=== PATIENT | female | born 1965 | race Caucasian/White ===

== ENCOUNTER → 2016-11-02 | Day surgery (SDC) | payer OTHER ==
[2016-10-16 11:01] VITALS: BMI 33.0
[~2016-11-02] VITALS: Ht 167.6 cm; Wt 93.2 kg
[~2016-11-02] MED LIST: ATOR10TA82 PO; CHLO1TAB47 PO; HYDR-5688 PO; LIDOCAINE HCL 2% 2 ML VIAL (20MG/ML) ONE; MIDAZOLAM HCL 1 MG/ML 2ML VIAL ONE; ONDANSETRON INJ 2 MG/ML 2 ML VIAL ONE; PROPOFOL IV EMULSION 10 MG/ML 20 ML VIAL IV ONE; RANITAB PO; SODIUM CHLORIDE 0.9% 500ML 500 ML IV ONE; VENL37.593 PO
[2016-11-02 10:40] VITALS: Ht 167.6 cm; Wt 93.2 kg
--- NOTE | 2016-11-02 11:10 | Endo History and Physical ---
History & Physical Date of Service: Nov 02, 2016. Chief Complaint: SCREENING Referring Physician: DR Dinora STORY History of Present Illness 51 yo CF who presents for screening colonoscopy. Past Surgical History Hx Cardiac Surgery: No Hx Internal Defibrillator: No Hx Pacemaker: No Hx Abdominal Surgery: Yes (ALEE, APPY, X3, BELKIS BSO) Hx of Implantable Prosthesis: No Hx Post-Op Nausea and Vomiting: No Hx Cancer Surgery: Yes (BCC REMOVALS) Hx Thoracic Surgery: No Hx Orthopedic: Yes (RT RCR, RT ELBOW BONE SPUR REMOVAL) Hx Urinary Tract Surgery: Yes (LITHOTRIPSY) Family History Colon CA Social History Smoking Status: Current Every Day Smoker Hx Substance Use: No Hx Alcohol Use: Yes (SOCIAL) Allergies Coded Allergies: No Known Allergies (Unverified , 11/02/16) Current Medications Reported Home Medications Medications Dose Route/Sig Max Daily Dose Days Date Category Dose Instructions Heartburn Relief (Ranitidine Hcl) 75 Mg Tab 1 Tab PO DAILY PRN 10/16/16 Reported Lipitor (Atorvastatin Calcium) 10 Mg Tab 10 Mg PO HS 10/16/16 Reported [place] Plus Cold (Chlorpheniramine-Phenylephrine) 1 Tab Tab 1 Tab PO UD PRN 10/16/16 Reported [place] 5MG/325MG (Acetaminophen/Hydrocodone Bitart) Tab 1 Tablet PO Q6H PRN 08/31/15 Reported PRN PAIN Venlafaxine Extended Rel (Venlafaxine Hcl) 37.5 Mg Cap 37.5 Mg PO HS 02/07/14 Reported Vital Signs Weight (Kilograms): 93.18 Height (Feet): 5 Height (Inches): 6 Date Time Temp Pulse Resp B/P Pulse Ox O2 Delivery O2 Flow Rate FiO2 11/02/16 10:46 36.7 75 18 135/75 97 Room Air Physical Exam General Appearance: WD/WN, no apparent distress Respiratory/Chest: Auscultation: breath sounds normal Cardiovascular: Heart Auscultation: RRR Abdomen: Bowel Sounds: normal Inspection & Palpation: soft, non-distended, no tenderness, guarding & rebound Assessment and Plan Assessment: 51 yo CF who presents for screening colonoscopy. Plan: Proceed with colonoscopy.
--- NOTE | 2016-11-02 11:32 | GI REPORT ---
Procedure Date: 11/02/2016 11:12 AM Procedure: Colonoscopy Indications: Screening for colorectal malignant neoplasm Medicines: Monitored Anesthesia Care Complications: No immediate complications. Estimated Blood Loss: Estimated blood loss: none. Procedure: Pre-Anesthesia Assessment: - Prior to the procedure, a History and Physical was performed, and patient medications and allergies were reviewed. The patient's tolerance of previous anesthesia was also reviewed. The risks and benefits of the procedure and the sedation options and risks were discussed with the patient. All questions were answered, and informed consent was obtained. Prior Anticoagulants: The patient has taken no previous anticoagulant or antiplatelet agents. ASA Grade Assessment: II - A patient with mild systemic disease. After reviewing the risks and benefits, the patient was deemed in satisfactory condition to undergo the procedure. After I obtained informed consent, the scope was passed under direct vision. Throughout the procedure, the patient's blood pressure, pulse, and oxygen saturations were monitored continuously. The Scope was introduced through the anus and advanced to the terminal ileum. The colonoscopy was performed without difficulty. The patient tolerated the procedure well. The quality of the bowel preparation was good. The terminal ileum, ileocecal valve, appendiceal orifice, and rectum were photographed. Findings: A 4 mm polyp was found in the transverse colon. The polyp was sessile. The polyp was removed with a cold snare. Resection and retrieval were complete. Non-bleeding internal hemorrhoids were found during retroflexion. The hemorrhoids were small. Impression: - One 4 mm polyp in the transverse colon, removed with a cold snare. Resected and retrieved. - Non-bleeding internal hemorrhoids. Recommendation: - Resume previous diet. - Continue present medications. - Repeat colonoscopy for surveillance based on pathology results. - Return to primary care physician as previously scheduled. Toribio Giles DO 11/02/2016 11:32:20 AM This report has been signed electronically. Note Initiated On: 11/02/2016 11:12 AM I attest to the content of the Intraoperative Record and orders documented therein, exceptions below
--- NOTE | 2016-11-02 11:33 | Discharge Instructions ---
Endoscopy Patient Instructions Date / Procedure(s) Performed Nov 02, 2016. Colonoscopy Allergy Information Coded Allergies: No Known Allergies (Unverified , 11/02/16) Discharge Date / Findings Nov 02, 2016. Colon polyp Internal hemorrhoids Medication Instructions OK to resume all medications today as prescribed. Reported Home Medications Medications Dose Route/Sig Max Daily Dose Days Date Category Dose Instructions Heartburn Relief (Ranitidine Hcl) 75 Mg Tab 1 Tab PO DAILY PRN 10/16/16 Reported Lipitor (Atorvastatin Calcium) 10 Mg Tab 10 Mg PO HS 10/16/16 Reported [place] Plus Cold (Chlorpheniramine-Phenylephrine) 1 Tab Tab 1 Tab PO UD PRN 10/16/16 Reported [place] 5MG/325MG (Acetaminophen/Hydrocodone Bitart) Tab 1 Tablet PO Q6H PRN 08/31/15 Reported PRN PAIN Venlafaxine Extended Rel (Venlafaxine Hcl) 37.5 Mg Cap 37.5 Mg PO HS 02/07/14 Reported Provider Instructions Activity Restrictions - No exercising or heavy lifting for 24 hours. - Do not drink alcohol the day of the procedure. - Do not drive a car or operate machinery until the day after the procedure. - Do not make any important decisions or sign important papers in 24 hours after the procedure. Following Day: - Return to full activity which may include returning to work/school. Diet Start your diet with liquids and light foods (jello, soup, juice, toast). Then eat your usual diet if not nauseated. Treatment For Common After Affects For mild abdominal pain, bloating, or excessive gas: - Rest - Eat lightly - Lie on right side Follow-Up Information Follow-up with DR Dinora STORY as scheduled Anesthesia Information What You Should Know You have had a procedure that required some medicine to reduce anxiety and discomfort. This treatment is called moderate sedation. After receiving the treatment, you may be sleepy, but you will be able to breathe on your own. The effects of the treatment may last for several hours. Follow these instructions along with Activity/Diet recommendations noted above: * Do NOT do anything where dizziness or clumsiness would be dangerous. * Rest quietly at home today, then you can be up and about tomorrow. * Have a responsible person stay with you the rest of today. * You may have had an I.V. today. If so, you may take the dressing off later today. Recommendations Call your doctor if: * Trouble breathing * Continuous vomiting for more than 24 hours * Temperature above 101 degrees * Severe abdominal pain or bloating * Pain not relieved by pain medicine ordered * There is increased drainage or redness from any incision * A large amount of rectal bleeding greater than 2-3 tablespoons. (If you had a polyp/s removed or have hemorrhoids, a small amount of blood - from the rectum is to be expected.) * You have any unanswered questions or concerns. IN THE EVENT OF A SERIOUS EMERGENCY, GO TO THE NEAREST EMERGENCY ROOM Your discharge instructions were prepared by provider Toribio Giles. Patient Instructions Signature Page Dalila Atkins Patient (or Guardian) Signature/Date: I have read and understand the instructions given to me by my caregivers. Caregiver/RN/Doctor Signature/Date: The above-named patient and/or guardian has received patient instructions on this date. + Original Patient Signature Page (only) stays with chart. Please make copy for patient.
[2016-11-02 12:19] VITALS: BP 118/79; PULSE 81; O2SAT 96
--- NOTE | 2016-11-02 13:32 | Anesthesiology Progress Note ---
Anesthesia Post Op Note Date & Time Nov 02, 2016 at 13:32 Vital Signs Pain Intensity: 0 Vital Signs Past 12 Hours Date Time Temp Pulse Resp B/P Pulse Ox O2 Delivery O2 Flow Rate FiO2 11/02/16 12:19 81 20 118/79 96 Room Air 11/02/16 11:58 78 20 124/82 97 Room Air 11/02/16 11:42 91 18 115/81 96 Room Air 11/02/16 10:46 36.7 75 18 135/75 97 Room Air Notes Mental Status: alert / awake / arousable, participated in evaluation Pt Amnestic to Procedure: Yes Nausea / Vomiting: adequately controlled Pain: adequately controlled Airway Patency, RR, SpO2: stable & adequate BP & HR: stable & adequate Hydration State: stable & adequate Anesthetic Complications: no major complications apparent
== END | disposition home or self-care (01) ==
LOC: C.GI 10:29
PROVIDERS: ATTEND Internal Medicine
DX: Z12.11 Encounter for screening for malignant neoplasm of colon (principal); D12.3 Benign neoplasm of transverse colon; K64.8 Other hemorrhoids; E66.9 Obesity, unspecified; F17.200 Nicotine dependence, unspecified, uncomplicated; K21.9 Gastro-esophageal reflux disease without esophagitis; M19.90 Unspecified osteoarthritis, unspecified site; Z90.89 Acquired absence of other organs; Z90.49 Acquired absence of other specified parts of digestive tract; Z79.899 Other long term (current) drug therapy; Z68.33 Body mass index [BMI] 33.0-33.9, adult; Z80.0 Family history of malignant neoplasm of digestive organs

== ENCOUNTER → 2017-03-15 | Outpatient (CLI) | payer OTHER ==
[~2017-03-15] MED LIST changes: -ATOR10TA82 PO; +ATOR10TA88 PO; -LIDOCAINE HCL 2% 2 ML VIAL (20MG/ML) ONE; -MIDAZOLAM HCL 1 MG/ML 2ML VIAL ONE; -ONDANSETRON INJ 2 MG/ML 2 ML VIAL ONE; -PROPOFOL IV EMULSION 10 MG/ML 20 ML VIAL IV ONE; -SODIUM CHLORIDE 0.9% 500ML 500 ML IV ONE
[2017-03-15 12:57] LABS: CHOLESTEROL/HDL RATIO 3.6
== END | disposition home or self-care (01) ==
LOC: C.LAB 10:16
PROVIDERS: ATTEND Physician Assistant
DX: Z00.00 Encounter for general adult medical examination without abnormal findings (principal)

== ENCOUNTER 2017-11-21 14:33 | Emergency (ER) | payer OTHER ==
[~2017-11-21] VITALS: Ht 167.6 cm; Wt 95.5 kg
[~2017-11-21 14:33] MED LIST changes: +ATOR10TA82 PO; -ATOR10TA88 PO; -CHLO1TAB47 PO; +CHLO1TAB50 PO
[2017-11-21 14:36] VITALS: TEMP 36.8; Ht 167.6 cm; Wt 95.5 kg
[2017-11-21] MEDS ORDERED: OXYCODONE/ACETAMINOPHEN 5-325 TAB PO ONE (15:15)
[2017-11-21] MEDS ORDERED: HYDR-4313 PO (15:21)
[2017-11-21] MEDS ORDERED: PRED20TA2 PO (15:21)
[2017-11-21] MEDS ORDERED: FLX10 PO (15:21)
[2017-11-21] MEDS ORDERED: VENL75CA73 PO (15:22)
--- NOTE | 2017-11-21 15:54 | DIAGNOSTIC IMAGING REPORT ---
CERVICAL SPINE 5 VIEWS CLINICAL HISTORY: Neck pain. Right upper extremity radiculopathy. FINDINGS: AP, lateral, bilateral oblique, and odontoid views of the cervical spine are obtained. No prior studies are available for comparison at the time of dictation. The skeletal structures are osteopenic. There is no radiographic evidence of fracture or subluxation. There is straightening of the cervical lordosis. Vertebral body height and alignment are maintained. The spinolaminar line is preserved. The odontoid process and lateral masses appear intact, as seen on the open-mouth view. The atlantodental articulation appears maintained. Anterior osteophytes are seen at C5-C6. There is moderate disc space narrowing at C5-C6, and a posterior disc osteophyte complex at this level may contribute to mild acquired compromise of the central canal. Uncovertebral and facet arthropathy likely contribute to mild bilateral neural foraminal stenosis from C4-C5 through C6-C7. The prevertebral soft tissues are normal as imaged. The visualized upper lobe lung parenchyma appears clear. IMPRESSION: 1. There is no radiographic evidence of fracture or subluxation involving the cervical spine. 2. Osteopenia and spondylotic change as above, greatest at C5-C6. Dictated: 11/21/2017 3:48 PM Transcribed: 11/21/2017 3:54 PM [email or web address] Electronically signed by: Kwan Wellington M.D. 11/21/2017 3:57 PM Dictated Date/Time: 11/21/2017 3:48 PM
[2017-11-21] MEDS ORDERED: OXYC-57 PO (16:11)
--- NOTE | 2017-11-21 16:28 | EMERGENCY ROOM VISIT NOTE ---
History First contact with patient: 14:55 Chief Complaint: ARM PAIN Stated Complaint: NECK PAIN, SHOULDER PAIN, NUMBNESS IN FINGERS, RT History of Present Illness The patient is a 52 year old white female who presents to the Emergency Room with complaints of right arm and shoulder pain has been present for 9 days. Patient fell down some steps 2 weeks ago and landed on her low back. She had low back pain at that time. Her low back pain has resolved. The right arm pain persists. It was not present after the initial fall. She did see her PCP earlier this week and was prescribed a tapering course of prednisone and cyclobenzaprine. She states they are not helping. She has Vicodin for her low back. She states that is not touching the pain either. She notes tingling in her index and long fingers. She denies any loss of motion or loss of strength. She is unable to extend her neck secondary to pain. She states her arm pain is relieved with hanging her head forward or raising her right arm over her head. No symptoms on the left arm. Radiating pain increases with looking to the right. It is less with looking to the left. Right hand dominant. Her son accompanies her today. Review of Systems REVIEW OF SYSTEM: HEENT: No dizziness, visual problems, hearing loss, or tinnitus. There is no difficulty swallowing and no oral lesions are present. PULMONARY: No cough, shortness of breath, sputum production or hemoptysis. CARDIOVASCULAR: No chest pain, palpitations, shortness of breath or peripheral edema. GASTROINTESTINAL: No diarrhea, constipation, nausea, vomiting, or abdominal pain. GENITOURINARY: No dysuria, frequency, urgency or nocturia. NEUROLOGIC: No weakness, muscle tenderness, epilepsy or history of neurological problems. MUSCULOSKELETAL: No history of joint tenderness/swelling. No history of arthritis or arthralgias. SKIN: No rashes or lesions. ENDOCRINE: No history of diabetes, thyroid disorders, or abnormal hair growth. Past Medical/Surgical History Medical Problems: (1) No Known Active Medical Problems Surgical Problems: (1) Hx of appendectomy (2) Hx of cholecystectomy (3) Hx of hysterectomy 3, right elbow spur excision, right shoulder rotator cuff repair Family History Significant for diabetes, heart disease, hypertension, cancer, and kidney stones. Parents are . Social History Smoking Status: Current Every Day Smoker Smokeless Tobacco Use: No Alcohol Use: occasionally Drug Use: none Marital Status: Housing Status: lives with family Occupation Status: employed Current/Historical Medications Scheduled Prednisone (Prednisone Tab), 1 DOSE PO DAILY Venlafaxine Hcl (Venlafaxine Extended Rel), 75 MG PO DAILY Scheduled PRN Acetaminophen/Hydrocodone (Hydrocodone/Acetaminophen 5-325 mg), 1 TAB PO Q6 PRN for Pain Cyclobenzaprine HCl (Cyclobenzaprine HCl), 10 MG PO BID PRN for SPASMS Oxycodone/Acetaminophen 5MG/325MG (Percocet 5MG/325MG), 1-2 TABLETS PO Q6H PRN for Pain Physical Exam Vital Signs Date Time Temp Pulse Resp B/P (MAP) Pulse Ox O2 Delivery O2 Flow Rate FiO2 11/21/17 14:36 36.8 87 18 129/88 96 Room Air Physical Exam General: Well-developed, well-nourished, middle-aged white female, in obvious discomfort. No acute distress. Sitting on the bed. Alert and oriented. Skin: Warm and dry with good turgor. No rashes or lesions. No ecchymosis or erythema. The patient is not diaphoretic. No abrasions. Skin tags are present. Musculoskeletal: Patient denies any discomfort with palpation over her cervical spine. No pain with palpation over the left side paraspinal musculature or left shoulder. No palpable spasm. She has discomfort with palpation over the right trapezius and right rhomboid musculature. No pain with palpation over the right-sided rotator cuff, deltoid, bicep, or tricep. Full left cervical rotation, right cervical rotation limited by approximately 20. Full forward flexion. Neck extension limited to just beyond neutral secondary to right- sided pain. Full range of motion of the right shoulder, elbow, and wrist. Strength is 5/5 for resisted flexion and extension of the digits, wrist, and elbow. Normal strength for resisted finger extension as well as abduction, pinch roller skater, and opposition. No increase in pain with rotator cuff testing. Neurologic: Gross sensation is intact across the right arm by soft touch. Decreased subjective sensation across the index and long fingers, consistent with C7. Peripheral pulses are 2+. Medical Decision & Procedures ER Provider Diagnostic Interpretation: Radiographic imaging obtained today of the cervical spine was reviewed by me and read by radiology. No evidence of fracture or subluxation.. She does have spondylotic change greatest at C5-C6. Neural foramen narrowing is noted on the right at multiple levels. Medications Administered Medications (Trade) Dose Ordered Sig/Petar Route Start Time Stop Time Status Last Admin Dose Admin Oxycodone/ Acetaminophen (Percocet 5-325mg Tab) 2 tab ONE ONCE PO 11/21/17 15:15 11/21/17 15:16 DC 11/21/17 15:31 2 TAB Percocet 5 mg, 2 tablets p.o. ED Course Patient was educated regarding today's findings. Conservative care measures were discussed. Imaging of the cervical spine was obtained. She has tried Flexeril, prednisone, and Vicodin without improvement. She was given 2 tablets of Percocet while in the ED. Additional prescription was provided. Continue taking this every 6 hours as needed for pain control. Follow-up with her PCP tomorrow for discussion about a nerve conduction study and cervical spine MRI to evaluate for nerve root impingement. I do suggest gentle stretching of her neck. Ice or moist heat applied intermittently may improve her discomfort. Return to the ED for any acute worsening of symptoms. Medical Decision Possibility of spinal stenosis, disc bulge, nerve root impingement, brachial plexus injury, muscle spasm, and traction injury were considered. Medication Reconcilliation Current Medication List: was personally reviewed by me Blood Pressure Screening Patient's blood pressure: Normal blood pressure Impression Primary Impression: Radiculopathy of cervical spine Additional Impression: Arm pain, right Departure Information Prescriptions Oxycodone/Acetaminophen 5MG/325MG (PERCOCET 5MG/325MG) Tab 1-2 TABLETS PO Q6H Y for Pain, #15 TAB PAIN Prov: aCrlitos Bishop,P.A. 11/21/17 Referrals Mae Heck D.O. (PCP) Patient Instructions [facility] Problem Qualifiers
[2017-11-21 16:41] VITALS: BP 175/78; PULSE 90; O2SAT 96
== END 2017-11-21 16:42 | disposition home or self-care (01) ==
LOC: C.EDB 14:36 → C.EDD 16:42
DX: M54.12 Radiculopathy, cervical region (principal); M79.601 Pain in right arm; W10.9XXA Fall (on) (from) unspecified stairs and steps, initial encounter; F17.200 Nicotine dependence, unspecified, uncomplicated; Z90.49 Acquired absence of other specified parts of digestive tract; Z90.710 Acquired absence of both cervix and uterus; Z90.89 Acquired absence of other organs; Z98.891 History of uterine scar from previous surgery; Z98.890 Other specified postprocedural states; Z83.3 Family history of diabetes mellitus; Z82.49 Family history of ischemic heart disease and other diseases of the circulatory system; Z84.1 Family history of disorders of kidney and ureter

== ENCOUNTER → 2018-02-10 | Outpatient (CLI) | payer OTHER ==
[~2018-02-10] MED LIST changes: -ATOR10TA82 PO; -CHLO1TAB50 PO; +FLX10 PO; +GADAVIST IV PRN; +HYDR-4313 PO; -HYDR-5688 PO; +OXYC-57 PO; +PRED20TA2 PO; -RANITAB PO; -VENL37.593 PO; +VENL75CA73 PO
--- NOTE | 2018-02-10 10:01 | DIAGNOSTIC IMAGING REPORT ---
CERVICAL SPINE MRI WITH AND WITHOUT CONTRAST HISTORY: WITH CONTRAST ONLY .... NECK PAIN/ R ARM NUMBESS TECHNIQUE: Multiplanar multisequence MRI of the cervical spine was performed both before and after the use of intravenous contrast. COMPARISON STUDY: Cervical spine 11/21/2017. FINDINGS: No fracture or subluxation within the cervical spine. Moderate disc space narrowing at C5-C6. Mild disc space narrowing at C6-C7. The visualized posterior fossa is unremarkable. Normal signal intensity within the cervical spinal cord. No abnormal enhancement. Prevertebral soft tissues and the C1-C2 interval are intact. Mild endplate degenerative changes at C5-C6. C2-C3: No significant central canal or neural foraminal narrowing. C3-C4: Small broad-based posterior disc bulge without significant central canal narrowing. There is mild bilateral neural foraminal narrowing. C4-C5: No significant central canal or neural foraminal narrowing. C5-C6: Broad-based posterior disc bulge which abuts and slightly deforms the anterior cord resulting in mild to moderate mild central canal and severe bilateral neural foraminal narrowing. C6-C7: Broad-based posterior disc bulge with a small left paracentral focal disc protrusion. This abuts but does not significantly deform the anterior cord. There is associated severe right and mild left neural foraminal narrowing. C7-T1: No significant central canal or neural foraminal narrowing. IMPRESSION: 1. Broad-based posterior disc bulge at C5-C6 which abuts and slightly deforms the anterior cord resulting in mild to moderate mild central canal and severe bilateral neural foraminal narrowing. 2. Broad-based posterior disc bulge at C6-C7 with a small left paracentral focal disc protrusion. This abuts but does not significantly deform the anterior cord. There is associated severe right and mild left neural foraminal narrowing. 3. Additional mild degenerative changes as described above. Electronically signed by: Andrew Stone M.D. 02/10/2018 10:00 AM Dictated Date/Time: 02/10/2018 9:49 AM
== END | disposition home or self-care (01) ==
LOC: C.MRI 08:07
PROVIDERS: ATTEND Student in an Organized Health Care Education/Training Program
DX: M47.812 Spondylosis without myelopathy or radiculopathy, cervical region (principal); M50.222 Other cervical disc displacement at C5-C6 level; M50.223 Other cervical disc displacement at C6-C7 level; M79.622 Pain in left upper arm